=== PATIENT | female | born 1980 | race Caucasian/White ===

== ENCOUNTER → 2019-05-18 | Outpatient (CLI) | payer MEDICAID ==
--- NOTE | 2019-05-19 09:37 | USB ---
Reason for exam: clinical finding. Indicated problem(s): lump or thickening in the left breast. Physical Findings: Nurse Summary: all soft, nodular, movable, prominent nodularity (nurse ts). US Breast LT Technologist: Yaneth Dawkins Left complete breast ultrasound includes all four quadrants, the retroareolar region and axilla. Finding demonstrates a 0.8 x 0.8 x 0.3cm oval, cystic lesion at 2 o'clock and a 1.2 x 1.1 x 0.6cm circular, cystic lesion at 4 o'clock. These results were verbally communicated with the patient and result sheet given to the patient on 05/18/19. ASSESSMENT: Benign, BI-RAD 2 RECOMMENDATION: Routine screening mammogram of both breasts at age 39. Manage patient on a clinical basis.
== END | disposition home or self-care (01) ==
LOC: RADUSWWP 12:43
PROVIDERS: ATTEND Internal Medicine
DX: N63.23 Unspecified lump in the left breast, lower outer quadrant (principal)

== ENCOUNTER → 2020-01-19 | Outpatient (CLI) | payer MEDICAID | END | disposition home or self-care (01) | LOC: CPPFTMAIN 07:17 | PROVIDERS: ATTEND Internal Medicine | DX: J45.998 Other asthma (principal) | CPT/HCPCS: 94060; 94726; 94729 ==

== ENCOUNTER → 2020-09-19 | Outpatient (CLI) | payer MEDICAID ==
--- NOTE | 2020-09-20 08:41 | MM ---
Reason for exam: clinical finding. History: Took hormonal contraceptives beginning at age 20. Physical Findings: Nurse did not find any significant physical abnormalities on exam. MG 3D Diag Mammo W/Cad LORETO Bilateral CC and MLO view(s) were taken. The breast tissue is extremely dense which could obscure a lesion on mammography. Bilateral diffuse nodules. Ultrasound recommended. These results were verbally communicated with the patient and result sheet given to the patient on 09/19/20. ASSESSMENT: Incomplete: need additional imaging evaluation, BI-RAD 0 RECOMMENDATION: Ultrasound of both breasts.
--- NOTE | 2020-09-20 08:44 | USB ---
Reason for exam: additional evaluation requested from abnormal screening. History: Took hormonal contraceptives beginning at age 20. US Breast BILAT Technologist: Yaneth Dawkins Right complete breast ultrasound includes all four quadrants, the retroareolar region and axilla. Finding demonstrates a 0.8 x 0.7 x 0.5cm cystic lesion at 2 o'clock complex with septation, a 0.3 x 0.5 x 0.3cm cystic lesion at 8 o'clock complex with septations, a 0.6 x 0.5 x 0.3cm cystic lesion at 8 o'clock and a 0.6 x 0.5 x 0.5cm cystic lesion at 9 o'clock. Left complete breast ultrasound includes all four quadrants, the retroareolar region and axilla. Finding demonstrates a 0.3 x 0.3 x 0.3cm cystic lesion at 9 o'clock, a 1.0 x 1.2 x 0.6cm cystic lesion at 3 o'clock complex with septations and a 0.8 x 0.7 x 0.4cm cystic lesion at 2 o'clock. Benign appearing, corresponds to mammogram. These results were verbally communicated with the patient and result sheet given to the patient on 09/19/20. ASSESSMENT: Benign, BI-RAD 2 RECOMMENDATION: Routine screening mammogram of both breasts in 1 year.
== END | disposition home or self-care (01) ==
LOC: RADMAMWWP 13:00
PROVIDERS: ATTEND Internal Medicine
DX: N60.01 Solitary cyst of right breast (principal); N60.02 Solitary cyst of left breast; N63.10 Unspecified lump in the right breast, unspecified quadrant; N63.20 Unspecified lump in the left breast, unspecified quadrant
CPT/HCPCS: 77062; 77066

== ENCOUNTER → 2021-08-10 | Outpatient (CLI) | payer MEDICAID ==
--- NOTE | 2021-08-10 15:52 | ECHOF ---
Referral Reason:TIA G45.9 MEASUREMENTS -------- HEIGHT: 160.0 cm WEIGHT: 54.4 kg BP: RVIDd: 3.3 cm (< 3.3) IVSd: 0.9 cm (0.6 - 1.1) LVIDd: 4.4 cm (3.9 - 5.3) LVPWd: 1.0 cm (0.6 - 1.1) IVSs: 1.4 cm LVIDs: 1.9 cm LVPWs: 1.5 cm LAESV Index (A-L): 30.78 ml/m Ao Diam: 3.0 cm (2.0 - 3.7) AV Cusp: 2.0 cm (1.5 - 2.6) LA Diam: 3.4 cm (2.7 - 3.8) MV E Mark: 0.98 m/s MV DecT: 164 ms MV A Mark: 0.73 m/s MV E/A Ratio: 1.35 RAP: 5.00 mmHg RVSP: 36.67 mmHg FINDINGS -------- Sinus rhythm. This was a technically adequate study. The left ventricular size is normal. Left ventricular wall thickness is normal. Overall left vent ricular systolic function is normal with, an EF between 55 - 60 %. The diastolic filling pattern is normal for the age of the patient 8.45. The right ventricle is mildly enlarged. LA is midly dilated 29-33ml/m2. The right atrial size is normal. Interatrial and interventricular septum intact. Trace amount of aortic regurgitation. There is no evidence of aortic stenosis. Mild mitral regurgitation is present. Mild tricuspid regurgitation present. There is no evidence of pulmonary hypertension. The right v entricular systolic pressure, as measured by Doppler, is 36.67mmHg. There is no pulmonic regurgitation present. The aortic root size is normal. IVC Not well visulized. There is no pericardial effusion. CONCLUSIONS -------- 1. The left ventricular size is normal. 2. Left ventricular wall thickness is normal. 3. Overall left ventricular systolic function is normal with, an EF between 55 - 60 %. 4. The diastolic filling pattern is normal for the age of the patient 8.45 5. The right ventricle is mildly enlarged. 6. LA is midly dilated 29-33ml/m2. 7. Trace amount of aortic regurgitation. 8. Mild mitral regurgitation is present. 9. Mild tricuspid regurgitation present. HEATING AND BLENDING SUPERVISOR: Janie Bates RDCS
== END | disposition home or self-care (01) ==
LOC: RADECHMAIN 13:51
PROVIDERS: ATTEND Internal Medicine Geriatric Medicine
DX: I08.3 Combined rheumatic disorders of mitral, aortic and tricuspid valves (principal)
CPT/HCPCS: 93306

== ENCOUNTER → 2021-08-19 | Outpatient (CLI) | payer MEDICAID ==
--- NOTE | 2021-08-20 13:02 | MR ---
EXAMINATION TYPE: MR brain wo/w con DATE OF EXAM: 08/19/2021 COMPARISON: HISTORY: Stroke like symptoms, slurred speech, confusion, muscle twitches, weakness TECHNIQUE: Multiplanar, multisequence images of the brain and brainstem is performed without and with IV contras t, utilizing 5 mL intravenous Gadavist . FINDINGS: Diffusion weighted images demonstrate no evidence of a recent infarct or other diffusion ab normality. There is no extra-axial fluid collection. There are scattered hyperintensities within the periventricular, deep and subcortical white matter on inversion recovery T2-weighted sequences, appr oximately 30 lesions are present, largest on axial image 20 the right frontal white matter measures a pproximately 8 mm The ventricular system and cisternal spaces are normal in size and appearance. The brain volume is age appropriate. Midline structures demonstrate normal morphology, inferior cerebellar tonsils in close proximity to t he foramen magnum. The craniocervical junction appears within normal limits. Post contrast images d emonstrate no abnormal enhancement. The dural venous sinuses appear patent. The visualized sinuses ar e clear and the globes are intact. IMPRESSION: Nonspecific white matter demyelination, differential includes demyelinating disease, rosalinda elate for multiple sclerosis, Lyme disease, hypertension, migraine headaches, vasculitis.
== END | disposition home or self-care (01) ==
LOC: RADMRIMAIN 12:38
PROVIDERS: ATTEND Internal Medicine Geriatric Medicine
DX: G37.9 Demyelinating disease of central nervous system, unspecified (principal)
CPT/HCPCS: 70553; A9585

== ENCOUNTER → 2021-09-29 | Outpatient (CLI) | payer MEDICAID ==
[2021-09-29 18:29] LABS: Basophils # (A) 0.03 X 10*3/uL (0.00-0.10); Basophils % (A) 0.6 %; Eosinophils # (A) 0.03 X 10*3/uL (0.04-0.35); Eosinophils % (A) 0.6 %; HCT 42.7 % (37.2-46.3); HGB 13.7 g/dL (12.0-15.0); Immature Grans, Automated 0.2 %; Lymphocytes # (A) 1.59 X 10*3/uL (0.90-5.00); Lymphocytes % (A) 29.3 %; MCH 29.3 pg (27.0-32.0); MCHC 32.1 g/dL (32.0-37.0); MCV 91.4 fL (80.0-97.0); Mean Platelet Volume 10.2 fL (9.5-12.2); Monocytes # (A) 0.31 X 10*3/uL (0.20-1.00); Monocytes % (A) 5.7 %; NRBC Per 100 WBC 0 /100 WBCS (0.0-0.0); Neutrophils # (A) 3.45 X 10*3/uL (1.80-7.70); Neutrophils % (A) 63.6 %; Platelet Count 315 X 10*3/uL (140-440); RBC 4.67 X 10*6/uL (4.10-5.20); WBC 5.42 X 10*3/uL (4.50-10.00)
[2021-09-29 19:07] LABS: Albumin 4.6 g/dL (3.8-4.9); Albumin/Globulin Ratio 2.15 (1.60-3.17); Anion Gap 10.4 mmol/L (10.00-18.00); BUN/Creat Ratio 7.32 Ratio (12.00-20.00); Calcium 9.4 mg/dL (8.7-10.3); Carbon Dioxide 26.2 mmol/L (20.0-27.5); Globulin 2.1 g/dL (1.6-3.3); Non-African American GFR(CKD) 108.7 (60.0-200.0); Total Bilirubin 0.3 mg/dL (0.30-1.20); Total Protein 6.7 g/dL (6.2-8.2)
== END | disposition home or self-care (01) ==
LOC: LABWHC1 12:39
PROVIDERS: ATTEND Nurse Practitioner Acute Care
DX: E55.9 Vitamin D deficiency, unspecified (principal); E53.9 Vitamin B deficiency, unspecified; R90.82 White matter disease, unspecified; R42 Dizziness and giddiness; R20.2 Paresthesia of skin
CPT/HCPCS: 36415; 80053; 82306; 82607; 84207; 85025

== ENCOUNTER → 2021-10-04 | Outpatient (CLI) | payer MEDICAID ==
[2021-10-05 11:53] LABS: IgG - CSF 1.6 mg/dL (0.0 - 3.4); IgG/Albumin Index (CSF) 0.55 (0.00 - 0.77); Immunoglobulin G 912 mg/dL (700 - 1600)
== END | disposition home or self-care (01) ==
LOC: LABWHC1 07:18
PROVIDERS: ATTEND Nurse Practitioner Acute Care
DX: R90.82 White matter disease, unspecified (principal)
CPT/HCPCS: 36415; 82040; 82042; 82784; 83916

== ENCOUNTER 2021-12-29 16:01 | Emergency (ER) | payer MEDICAID ==
[2021-12-29 16:10] VITALS: TEMP 99
[2021-12-29] MEDS ORDERED: SODIUM CHLORIDE 0.9% 500 ML 500 ML IV STA (18:31)
--- NOTE | 2021-12-29 18:37 | ED ---
General Adult HPI - General Chief complaint: Neuro Symptoms/Deficit Stated complaint: Eye issues,trouble speaking,Weakness-Poss stroke Time Seen by Provider: 12/29/21 18:17 Source: patient Mode of arrival: ambulatory Limitations: no limitations - History of Present Illness Initial comments: This patient is a 41-year-old woman who presents with request for neurologic evaluation are related to some symptoms that had developed yesterday around 3 in the afternoon. The patient states that she had the onset of difficulty with speech, namely that her speech was unintelligible for about 15 minutes. She also was experiencing "optic prisms," at that time. Again symptoms last about 15 minutes and have resolved. She states that since that time she's noticed she is having some difficulty with word finding, but her speech is clear. The patient is not having any extremity symptoms. No headache was experienced. The patient states that she does currently see Dr. Nolan, has been doing studies related to the possible MS. Onset/Timin -: hour(s) Severity scale (1-10): 0 Consistency: now resolved Improves with: none Worsens with: none Associated Symptoms: denies other symptoms Treatments Prior to Arrival: none - Related Data Allergies Allergy/AdvReac Type Severity Reaction Status Date / Time Penicillins Allergy Anaphylaxis Verified 12/29/21 16:12 aspirin AdvReac Rash/Hives Verified 12/29/21 16:13 codeine AdvReac Anaphylaxis Verified 12/29/21 16:12 erythromycin base AdvReac Rash/Hives Verified 12/29/21 16:12 ibuprofen AdvReac Rash/Hives Verified 12/29/21 16:12 shellfish derived [Shellfish] AdvReac Anaphylaxis Verified 12/29/21 16:12 sulfate ion AdvReac Anaphylaxis Verified 12/29/21 16:12 Review of Systems ROS Statement: Those systems with pertinent positive or pertinent negative responses have been documented in the HPI. ROS Other: All systems not noted in ROS Statement are negative. Constitutional: Denies: fever, chills, weakness Eyes: Reports: vision change Respiratory: Denies: cough, dyspnea Cardiovascular: Denies: chest pain, palpitations, syncope Gastrointestinal: Denies: abdominal pain, vomiting, diarrhea Genitourinary: Denies: dysuria, hematuria Musculoskeletal: Denies: back pain Neurological: Denies: headache, weakness, numbness, paresthesias, confusion Past Medical History Past Medical History: Asthma Additional Past Medical History / Comment(s): seasonal allergies, muscle spasms, possible MS Past Surgical History: Appendectomy, Section Past Psychological History: No Psychological Hx Reported Smoking Status: Never smoker Past Alcohol Use History: None Reported Past Drug Use History: None Reported General Exam Limitations: no limitations General appearance: alert, in no apparent distress Head exam: Present: atraumatic, normocephalic Eye exam: Present: normal appearance, PERRL, EOMI. Absent: scleral icterus, conjunctival injection Neck exam: Present: normal inspection Respiratory exam: Present: normal lung sounds bilaterally. Absent: respiratory distress, wheezes, rales, rhonchi, stridor Cardiovascular Exam: Present: regular rate, normal rhythm, normal heart sounds. Absent: systolic murmur, diastolic murmur, rubs, gallop GI/Abdominal exam: Present: soft. Absent: distended, tenderness, guarding, rebound, rigid, mass Extremities exam: Present: normal inspection, normal capillary refill. Absent: pedal edema, calf tenderness Back exam: Present: normal inspection. Absent: CVA tenderness (R), CVA tenderness (L) Neurological exam: Present: alert, oriented X3, CN II-XII intact. Absent: motor sensory deficit Skin exam: Present: warm, dry, intact, normal color. Absent: rash Course Vital Signs 12/29/21 16:03 Temperature 99.0 F Pulse Rate 70 Respiratory 18 Rate Blood Pressure 140/84 O2 Sat by Pulse 100 Oximetry Medical Decision Making - Lab Data Result diagrams: 12/29/21 18:38 12/29/21 18:38 Lab Results 12/29/21 12/29/21 12/29/21 Range/Units 18:38 18:38 18:38 WBC 6.8 (3.8-10.6) k/uL RBC 4.76 (3.80-5.40) m/uL Hgb 14.2 (11.4-16.0) gm/dL Hct 43.6 (34.0-46.0) % MCV 91.6 (80.0-100.0) fL MCH 29.8 (25.0-35.0) pg MCHC 32.6 (31.0-37.0) g/dL RDW 13.0 (11.5-15.5) % Plt Count 309 (150-450) k/uL MPV 7.6 Neutrophils % 57 % Lymphocytes % 34 % Monocytes % 5 % Eosinophils % 1 % Basophils % 2 % Neutrophils # 3.9 (1.3-7.7) k/uL Lymphocytes # 2.3 (1.0-4.8) k/uL Monocytes # 0.3 (0-1.0) k/uL Eosinophils # 0.1 (0-0.7) k/uL Basophils # 0.2 (0-0.2) k/uL PT 10.1 (9.0-12.0) sec INR 0.9 (<1.2) APTT 25.8 (22.0-30.0) sec Sodium 138 (137-145) mmol/L Potassium 3.7 (3.5-5.1) mmol/L Chloride 104 (98-107) mmol/L Carbon Dioxide 21 L (22-30) mmol/L Anion Gap 13 mmol/L BUN 11 (7-17) mg/dL Creatinine 0.71 (0.52-1.04) mg/dL Est GFR (CKD-EPI)AfAm >90 (>60 ml/min/1.73 sqM) Est GFR (CKD-EPI)NonAf >90 (>60 ml/min/1.73 sqM) Glucose 93 (74-99) mg/dL Calcium 9.7 (8.4-10.2) mg/dL Total Bilirubin 0.3 (0.2-1.3) mg/dL AST 22 (14-36) U/L ALT 9 (4-34) U/L Alkaline Phosphatase 72 (38-126) U/L Troponin I (0.000-0.034) ng/mL Total Protein 7.5 (6.3-8.2) g/dL Albumin 4.8 (3.5-5.0) g/dL 12/29/21 Range/Units 18:38 WBC (3.8-10.6) k/uL RBC (3.80-5.40) m/uL Hgb (11.4-16.0) gm/dL Hct (34.0-46.0) % MCV (80.0-100.0) fL MCH (25.0-35.0) pg MCHC (31.0-37.0) g/dL RDW (11.5-15.5) % Plt Count (150-450) k/uL MPV Neutrophils % % Lymphocytes % % Monocytes % % Eosinophils % % Basophils % % Neutrophils # (1.3-7.7) k/uL Lymphocytes # (1.0-4.8) k/uL Monocytes # (0-1.0) k/uL Eosinophils # (0-0.7) k/uL Basophils # (0-0.2) k/uL PT (9.0-12.0) sec INR (<1.2) APTT (22.0-30.0) sec Sodium (137-145) mmol/L Potassium (3.5-5.1) mmol/L Chloride (98-107) mmol/L Carbon Dioxide (22-30) mmol/L Anion Gap mmol/L BUN (7-17) mg/dL Creatinine (0.52-1.04) mg/dL Est GFR (CKD-EPI)AfAm (>60 ml/min/1.73 sqM) Est GFR (CKD-EPI)NonAf (>60 ml/min/1.73 sqM) Glucose (74-99) mg/dL Calcium (8.4-10.2) mg/dL Total Bilirubin (0.2-1.3) mg/dL AST (14-36) U/L ALT (4-34) U/L Alkaline Phosphatase (38-126) U/L Troponin I <0.012 (0.000-0.034) ng/mL Total Protein (6.3-8.2) g/dL Albumin (3.5-5.0) g/dL - EKG Data -: EKG Interpreted by [place] EKG shows normal: sinus rhythm, axis (Normal), intervals (Normal), QRS complexes (Normal), ST-T waves (Normal) Rate: bradycardia (Rate 59 bpm) Disposition Clinical Impression: Dysarthria Disposition: HOME SELF-CARE Condition: Good Instructions (If sedation given, give patient instructions): Transient Ischemic Attack (ED) Is patient prescribed a controlled substance at d/c from ED?: No Referrals: None,Stated [Primary Care Provider] - 1-2 days Remigio Nolan MD [Medical Doctor] - 1-2 days Decision Time: 19:50
[2021-12-29 18:46] LABS: Basophils # (A) 0.2 k/uL (0-0.2); Basophils % (A) 2 %; Eosinophils # (A) 0.1 k/uL (0-0.7); Eosinophils % (A) 1 %; HCT 43.6 % (34.0-46.0); HGB 14.2 gm/dL (11.4-16.0); Lymphocytes # (A) 2.3 k/uL (1.0-4.8); Lymphocytes % (A) 34 %; MCH 29.8 pg (25.0-35.0); MCHC 32.6 g/dL (31.0-37.0); MCV 91.6 fL (80.0-100.0); Mean Platelet Volume 7.6; Monocytes # (A) 0.3 k/uL (0-1.0); Monocytes % (A) 5 %; Neutrophils # (A) 3.9 k/uL (1.3-7.7); Neutrophils % (A) 57 %; Platelet Count 309 k/uL (150-450); RBC 4.76 m/uL (3.80-5.40); WBC 6.8 k/uL (3.8-10.6)
[2021-12-29 18:56] LABS: ALT 9 U/L (4-34); AST 22 U/L (14-36); African American GFR (CKD) >90 (>60 ml/min/1.73 sqM); Albumin 4.8 g/dL (3.5-5.0); Alkaline Phosphatase 72 U/L (38-126); Anion Gap 13 mmol/L; Blood Urea Nitrogen 11 mg/dL (7-17); Calcium 9.7 mg/dL (8.4-10.2); Carbon Dioxide 21 mmol/L (22-30); Chloride 104 mmol/L (98-107); Glucose 93 mg/dL (74-99); Non-African American GFR(CKD) >90 (>60 ml/min/1.73 sqM); Potassium 3.7 mmol/L (3.5-5.1); Sodium 138 mmol/L (137-145); Total Bilirubin 0.3 mg/dL (0.2-1.3); Total Protein 7.5 g/dL (6.3-8.2)
[2021-12-29 19:01] LABS: INR 0.9 (<1.2); Partial Thromboplastin Time 25.8 sec (22.0-30.0); Prothrombin Time 10.1 sec (9.0-12.0)
--- NOTE | 2021-12-29 19:12 | CT ---
EXAMINATION TYPE: CT brain wo con DATE OF EXAM: 12/29/2021 COMPARISON: None HISTORY: weakness, trouble speaking CT DLP: 1068.4 mGycm Automated exposure control for dose reduction was used. Images obtained of the brain with no contrast. Ventricles and sulci appear normal. There is no mass effect or midline shift. No sign of intracranial hemorrhage. The calvarium is intact IMPRESSION: Negative unenhanced head CT scan.
--- NOTE | 2021-12-29 19:21 | XR ---
EXAMINATION TYPE: XR chest 2V DATE OF EXAM: 12/29/2021 COMPARISON: 08/04/2021 HISTORY: Asthma TECHNIQUE: 2 views FINDINGS: Heart and mediastinum are normal. Lungs are clear. Diaphragm is normal. Bony thorax is inta ct IMPRESSION: Normal chest. No change.
[2021-12-29 20:10] VITALS: BP 128/67; PULSE 61; RESP 16
== END 2021-12-29 20:17 | disposition home or self-care (01) ==
LOC: EC 16:01
DX: R47.1 Dysarthria and anarthria (principal); R00.1 Bradycardia, unspecified; J45.909 Unspecified asthma, uncomplicated; Z88.0 Allergy status to penicillin; Z88.6 Allergy status to analgesic agent; Z88.5 Allergy status to narcotic agent; Z88.1 Allergy status to other antibiotic agents; Z91.013 Allergy to seafood; Z88.2 Allergy status to sulfonamides
CPT/HCPCS: 36415; 70450; 71046; 80053; 84484; 85025; 85610; 85730; 93005; 96360; 99285

== ENCOUNTER → 2024-05-12 | Outpatient (CLI) | payer OTHER ==
[2024-05-12 14:10] VITALS: BP 135/87; PULSE 86; RESP 16; TEMP 98.4
--- NOTE | 2024-05-12 15:04 | P.SLEEP ---
History of Present Illness H&P Date: 05/12/24 This is a 43-year-old female patient who was referred to me for a sleep evaluation and the patient has been experiencing excessive fatigue and sleepiness. The patient has a very complicated history of an underlying ongoing neurological disorder, which is not fully diagnosed yet although a lot of her symptoms are similar to multiple sclerosis. The patient reports that she has had developed multiple [employer] lesions that was noted on previous imaging of the brain. She has had difficulties with speech, finding right words, motor deficits and dysfunction along with weakness and occasional visual changes for which she has been seen at [facility] and a workup has also included a lumbar puncture that was not fully diagnostic for multiple sclerosis. The patient is currently on Topamax. Nausea of any seizure disorders. She has history of chronic headaches. At the same time, the patient has history of allergic bronchial asthma maintained on a combination of Singulair and Zyrtec and Xopenex on an as-needed basis. Her asthma is currently inactive and stable. She also reports previous history of hypertension that was poorly controlled over the years and currently she is under better control while taking amlodipine 5 mg p.o. daily. In terms of her sleep, the patient has history of snoring. She goes to bed at around 11:30 PM and wakes up at 9:30 AM in the morning. She is excessively fatigued and tired and sleepy. She tries not to sleep or nap as taking sleep will make her more fatigued than tired. As such, she has been avoiding to take naps. Denies waking up in the middle of the night choking or gasping for air. She wakes up with a dry mouth. She has no difficulties in sleep initiation and and maintenance. If left unstimulated, she can fall asleep easily without any major difficulties. She does not fall asleep while driving. No restlessness in lower extremities. She has had some visual hallucinations while trying to go to sleep as the patient has seen images like her daughters image which obviously was not present in her room. No hypnagogic hallucin ations. No cataplexy. Few episodes of sleep paralysis has been noted. No childhood history of narcolepsy. Recurrent upper scores at 5. She has had previous history of concussions to the head. No substance abuse. No alcoholism. No sleepwalking. No sleep talking. No other parasomnias noted. Review of Systems Constitutional: Reports daytime sleepiness, Reports fatigue, Reports weakness Eyes: bilateral as per HPI, denies blurred vision, denies bulging eye, denies decreased vision, denies diplopia, denies discharge, denies dry eye, denies irritation, denies itching, denies pain, denies photophobia, denies loss of peripheral vision, denies loss of vision, denies tunnel vision/blind spots Ears: bilateral: decreased hearing, deny: ear discharge, earache, tinnitus Ears, nose, mouth and throat: Reports as per HPI Breasts: absent: as per HPI, change in shape, gynecomastia, masses, nipple discharge, pain, skin changes, swelling Cardiovascular: Reports as per HPI Respiratory: Reports as per HPI Gastrointestinal: Reports as per HPI Genitourinary: Reports as per HPI Menstruation: Reports as per HPI Musculoskeletal: Reports arm numbness/tingling, Reports muscle weakness Musculoskeletal: absent: ankle pain, ankle stiffness, ankle swelling, as per HPI, elbow pain, elbow stiffness, elbow swelling, foot pain, foot stiffness, foot swelling, hand pain, hand stiffness, hand swelling, hip pain, hip stiffness, hip swelling, knee pain, knee stiffness, knee swelling, shoulder p ain, shoulder stiffness, shoulder swelling, wrist pain, wrist stiffness, wrist swelling Integumentary: Reports as per HPI Neurological: Reports as per HPI, Reports change in speech, Reports gait dysfunction, Reports head injury, Reports migraines, Reports motor disturbance, Reports weakness Psychiatric: Reports as per HPI Endocrine: Reports as per HPI, Reports fatigue Hematologic/Lymphatic: Reports as per HPI Allergic/Immunologic: Reports as per HPI Past Medical History Past Medical History: Asthma Additional Past Medical History / Comment(s): seasonal allergies, muscle spasms, possible MS History of Any Multi-Drug Resistant Organisms: None Reported Past Surgical History: Appendectomy, Section Past Anesthesia/Blood Transfusion Reactions: No Reported Reaction Past Psychological History: No Psychological Hx Reported Smoking Status: Never smoker Past Alcohol Use History: None Reported Past Drug Use History: None Reported - Past Family History Mother Additional Family Medical History / Comment(s): anemia Father Family Medical History: Coronary Artery Disease (CAD), Hypertension Additional Family Medical History / Comment(s): snoring Brother(s) Family Medical History: Sleep Apnea/CPAP/BIPAP Medications and Allergies Home Medications Medication Instructions Recorded Confirmed Type Cetirizine HCl [Zyrtec] 10 mg PO DAILY 05/12/24 05/12/24 History Levalbuterol Hfa Inhaler [Xopenex See Rx Instructions .ROUTE 05/12/24 05/12/24 History Hfa Inhaler] .COMPLEX PRN Levalbuterol Nebulized [Xopenex 1.25 mg INHALATION TID PRN MDD 05/12/24 05/12/24 History Nebulized] 1.25 mg Montelukast [Singulair] 10 mg PO DAILY 05/12/24 05/12/24 History Topiramate [Topiramate ER] 25 mg PO DAILY 05/12/24 05/12/24 History Topiramate [Topiramate ER] 50 mg PO HS 05/12/24 05/12/24 History amLODIPine [Norvasc] 5 mg PO DAILY 05/12/24 05/12/24 History tiZANidine [Zanaflex] 4 mg PO DAILY 05/12/24 05/12/24 History tiZANidine [Zanaflex] 4 mg PO Q8HR PRN 05/12/24 History Allergies Allergy/AdvReac Type Severity Reaction Status Date / Time Penicillins Allergy Anaphylaxis Verified 12/29/21 16:12 aspirin AdvReac Rash/Hives Verified 12/29/21 16:13 codeine AdvReac Anaphylaxis Verified 12/29/21 16:12 erythromycin base AdvReac Rash/Hives Verified 12/29/21 16:12 ibuprofen AdvReac Rash/Hives Verified 12/29/21 16:12 shellfish derived [Shellfish] AdvReac Anaphylaxis Verified 12/29/21 16:12 sulfate ion AdvReac Anaphylaxis Verified 12/29/21 16:12 Physical Exam Vitals: Vital Signs Temp Pulse Resp BP Pulse Ox 05/12/24 14:08 98.4 F 86 16 135/87 100 Intake and Output 05/11/24 05/12/24 05/12/24 22:59 06:59 14:59 Other: Weight 52.163 kg The patient appeared well nourished and normally developed. Vital signs as documented. Head exam is unremarkable. No scleral icterus or corneal arcus noted. Neck is without jugular venous distension, thyromegaly, or carotid bruits. Carotid upstrokes are brisk bilaterally. Lungs are clear to auscultation and percussion. Cardiac exam reveals the PMI to be normally sized and situated. Rhythm is regular. First and second heart sounds normal. No murmurs, rubs or gallops. Abdominal exam reveals normal bowel sounds, no masses, no organomegaly and no aortic enlargement. Extremities are nonedematous and both femoral and pedal pulses are normal. Examination of the skin revealed no evidence of significant rashes, suspicious appearing nevi or other concerning lesions. Neurologically, the patient is awake and alert and the patient does not have any focal neurological deficit. Cranial nerves are essentially intact. Assessment and Plan Plan: Chronic exhaustion/fatigue with limited sleepiness and an [place] score of 6. Exact cause is not clear. The patient has an ongoing neurologic disorder and she is still on investigation [facility]. Multiple sclerosis was considered although the diagnostic workup was not consistent with MS. The patient was referred to me to evaluate her sleep quality. She has had some occasional sleep paralysis and early evening hallucinations/visual. No reported cataplexy. She has loud snoring. She is not obese and her body mass index is 20.3. She is taking muscle relaxants and she is also on Topamax. 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 The patient continues to have difficulties with vision, hearing, speech, motor dysfunction and generalized weakness. Chronic bronchial asthma, allergic in nature, currently inactive and stable Hypertension Environmental allergies Plan This is a quite complicated case and a final neurologic diagnosis not been established and the patient is currently undergoing further investigation through [facility]. The patient was referred to me to evaluate her sleep quality. Based on presence of an ongoing neurologic disorder, possibilities may include chronic hypersomnia/comorbid in nature. Narcolepsy cannot be completely excluded. Obstructive sleep apnea is felt to be less likely. I thought is worthwhile to order a screening per sonography for this patient to evaluate her sleep architecture, efficiency and rule out possibility of obstructive sleep apnea. At the same time, the patient will need a secondary MSLT to rule out the possibility of narcolepsy. Maintain good sleep hygiene measures. Will collaborate with the team at [facility] regarding her care. Keep same medications for now. Further recommendations are to be made based on the results of the sleep study. Sleep Note - Sleep Data ESS Total: 6 - Sleep Note Sleep Note: Temperature: 98.4 F Pulse Rate: 86 Respiratory Rate: 16 Blood Pressure: 135/87 SpO2: 100 Height: 5 ft 3 in Weight: 52.163 kg BMI: Neck Circumference: 11.5
== END ==
LOC: 3 N SLEEP 13:19
PROVIDERS: ATTEND Internal Medicine Critical Care Medicine
DX: R29.90 Unspecified symptoms and signs involving the nervous system (principal); I10 Essential (primary) hypertension; J45.909 Unspecified asthma, uncomplicated; G89.29 Other chronic pain; Z91.09 Other allergy status, other than to drugs and biological substances; Z88.0 Allergy status to penicillin; Z88.6 Allergy status to analgesic agent; Z88.5 Allergy status to narcotic agent; Z88.1 Allergy status to other antibiotic agents; Z91.013 Allergy to seafood; Z88.8 Allergy status to other drugs, medicaments and biological substances
CPT/HCPCS: 99211

== ENCOUNTER 2024-06-15 19:47 | Outpatient (CLI) | payer OTHER ==
[2024-06-16 21:28] LABS: Urine Alcohol Negative (Negative); Urine Barbiturate Negative (Negative); Urine Cocaine Negative (Negative); Urine Methadone Negative (Negative); Urine Opiates Negative (Negative); Urine Phencyclidine Negative (Negative)
--- NOTE | 2024-06-22 00:03 | P.PCN ---
Date of Procedure: 06/15/24 Operative Findings: Polysomnography report Date of service is 06/15/2024 History This is a 43-year-old female patient who was referred to me for a sleep evaluation and the patient has been experiencing excessive fatigue and sleepiness. The patient has a very complicated history of an underlying ongoing neurological disorder, which is not fully diagnosed yet although a lot of her symptoms are similar to multiple sclerosis. The patient reports that she has had developed multiple [employer] lesions that was noted on previous imaging of the brain. She has had difficulties with speech, finding right words, motor deficits and dysfunction along with weakness and occasional visual changes for which she has been seen at [facility] and a workup has also included a lumbar puncture that was not fully diagnostic for multiple sclerosis. The patient is currently on Topamax. Nausea of any seizure disorders. She has history of chronic headaches. At the same time, the patient has history of allergic bronchial asthma maintained on a combination of Singulair and Zyrtec a nd Xopenex on an as-needed basis. Her asthma is currently inactive and stable. She also reports previous history of hypertension that was poorly controlled over the years and currently she is under better control while taking amlodipine 5 mg p.o. daily. In terms of her sleep, the patient has history of snoring. She goes to bed at around 11:30 PM and wakes up at 9:30 AM in the morning. She is excessively fatigued and tired and sleepy. She tries not to sleep or nap as taking sleep will make her more fatigued than tired. As such, she has been avoiding to take naps. Denies waking up in the middle of the night choking or gasping for air. She wakes up with a dry mouth. She has no difficulties in sleep initiation and and maintenance. If left unstimulated, she can fall asleep easily without any major difficulties. She does not fall asleep while driving. No restlessness in lower extremities. She has had some visual hallucinations while trying to go to sleep as the patient has seen images like her daughters image which obviously was not present in her room. No hypnagogic hallucinations. No cataplexy. Few episodes of sleep paralysis has been noted. No childhood history of narcolepsy. Recurrent upper scores at 5. She has had previous history of concussions to the head. No substance abuse. No alcoholism. No sleepwalking. No sleep talking. No other parasomnias noted. Pertinent physical findings Weight is 115 pounds with a body mass index of 20.4 Technical description The patient was studied using a standard complex polysomnography protocol that included recording of the Lead II EKG, Central, occipital and frontal EEG, right and left outer canthus EOG, submental EMG, right and left anterior tibialis EMG, respiratory airflow by thermocouple and or pressure/flow transducer, respiratory efforts by abdominal and thoracic PVDF belts, oxygen saturation by cable oximetry. Position by observation synchronized the PSG. Equipment used: Giving Assistant. Sleep architecture The total recording duration was 460 minutes. The total sleep time was 368.5 minutes. The wake after sleep onset time was 82 minutes. The overall sleep efficiency was 80.1%. Latency to sleep onset was 8 minutes. The latest REM sleep was 106.0 minutes. The sleep architecture was characterized by 2.6% stage I, 65.5% stage II, 14.1% stage III, and disorder of 17.9% REM sleep. The total arousal index was 5.9. Respiratory analysis The patient had a total of 0 obstructive apneas, 0 mixed apneas, 0 central apneas and the AHI was 0. No central apneas were noted. Oxygenation analysis The baseline pulse ox while awake was 94%. The patient encountered no significant nocturnal oxygen saturations. Patient spent only 7.9 minutes of sleep time below pulse ox of 89% and this accounted for only 1% overall sleep study. Arousal events The patient encountered a total of 36 arousals with an arousal index of 5.9. The respiratory arousal index was 0 Periodic limb movement summary None Cardiac summary Average heart rate was 71 with a minimum heart of 66 and a maximum heart of 77 Assessment Primary snoring, no evidence of any sleep breathing disorder. Patient is AHI was 0. No obstructive apneas or hypopneas. No central apneas. No significant nocturnal oxygen saturations. No significant periodic limb movement activity. The overall sleep architecture was adequate with a sleep average of 80%. Chronic exhaustion/fatigue with limited sleepiness and an [place] score of 6. Exact cause is not clear. The patient has an ongoing neurologic disorder and she is still on investigation [facility]. Multiple sclerosis was considered although the diagnostic workup was not consistent with MS. The patient was referred to me to evaluate her sleep quality. She has had some occasional sleep paralysis and early evening hallucinations/visual. No reported cataplexy. She is taking muscle relaxants and she is also on Topamax. 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 The patient continues to have difficulties with vision, hearing, speech, motor dysfunction and generalized weakness. Chronic bronchial asthma, allergic in nature, currently inactive and stable Hypertension Environmental allergies Plan Patient will be reassured. No evidence of any sleep breathing disorder. My overall clinical suspicion for obstructive sleep apnea was low on this patient. The sleep study also showed adequate sleep architecture with some diminished overall sleep efficiency. Nevertheless, no significant abnormalities noted. Based on that, MSLT was performed. MSLT report Date of service is 06/16/2024 Technical description This MSLT was performed after a full night polysomnography during which there was more than 6 hours of sleep. The patient had complaints of excessive daytime sleepiness and fatigue. The electrographic variables include EEG, EMG, EEG and EKG. Patient was monitored throughout 520 minutes opportunities to sleep at 2- hour intervals. For each nap, the patient was allowed to sleep for around 20 minutes. Once asleep, the patient was awakened after 15 minutes. In between naps, the patient was Is alert responsible. The latency of 20 minutes indicated no sleep occurrence. Results This patient was given a total of 5 naps. The mean sleep latency for left under 1 was 8 minutes, left #2 was 7 minutes Hide #3 was 3 minutes, abdominal fullness 8 minutes and abnormal event was 14.5 minutes. The mean sleep latency for 5 naps was 8.1 minutes. No REM onset sleep. Assessment No evidence of any sleep breathing disorder No evidence of pathologic hypersomnia based on MSLT. The mean sleep latency for 5 naps was 8.1 minutes and the patient did not have any REM onset sleep Plan Consider modafinil for daytime stimulation. As stated, patient's symptoms of fatigue and sleepiness could be related to her comorbidities. No evidence of any primary idiopathic hypersomnia or narcolepsy. No evidence of any sleep breathing disorder. This is a quite complicated case and a final neurologic diagnosis not been established and the patient is currently undergoing further investigation through [facility]. Maintain good sleep hygiene measures. Will collaborate with the team at [facility] regarding her care. Keep same medications for now.
== END 2024-06-16 17:35 | disposition home or self-care (01) ==
LOC: 3 N SLEEP 19:47
PROVIDERS: ATTEND Internal Medicine Critical Care Medicine
DX: R06.83 Snoring (principal); R53.82 Chronic fatigue, unspecified; G35 Multiple sclerosis; G31.9 Degenerative disease of nervous system, unspecified; R53.1 Weakness; F82 Specific developmental disorder of motor function; J45.909 Unspecified asthma, uncomplicated; I10 Essential (primary) hypertension; Z79.899 Other long term (current) drug therapy; H53.9 Unspecified visual disturbance; R47.9 Unspecified speech disturbances; Z88.0 Allergy status to penicillin; Z88.6 Allergy status to analgesic agent; Z88.5 Allergy status to narcotic agent; Z88.1 Allergy status to other antibiotic agents; Z91.013 Allergy to seafood; Z88.2 Allergy status to sulfonamides
CPT/HCPCS: 80306; 95805; 95810

== ENCOUNTER → 2024-10-08 | Outpatient (CLI) | payer OTHER ==
--- NOTE | 2024-10-09 07:34 | MM ---
Reason for Exam: Screening (asymptomatic). Last mammogram was performed 1 year(s) and 11 month(s) ago. Patient History: Menarche at age 12. First Full-Term at age 23. Patient has history of breast feeding. Hormonal Contraceptives, from age 20 until age 22. Risk Values: Ella 5 year model risk: 0.7%. NCI Lifetime model risk: 8.7%. Prior Study Comparison: 09/19/2020 Bilateral Diagnostic Mammogram, [facility]. 11/15/2022 Bilateral MG screening mammo w CAD, [facility]. Tissue Density: The breasts are extremely dense, which lowers the sensitivity of mammography. Findings: Analyzed By CAD. There is no suspicious group of microcalcifications or new suspicious mass in either breast. Overall Assessment: Benign, BI-RAD 2 Management: Screening Mammogram of both breasts in 1 year. . Patient should continue monthly self-breast exams. A clinical breast exam by your physician is recommended on an annual basis. This exam should not preclude additional follow-up of suspicious palpable abnormalities. Note on Ella scores and lifetime risk: 1. A Ella score greater than 3% is considered moderate risk. If this is the case, consider specialist referral to assess eligibility for a risk reducing agent. 2. If overall lifetime risk for the development of breast cancer is 20% or higher, the patient may qualify for future screening with alternating mammogram and breast MRI. [facility], , 10/09/2024 7:31 AM. Electronically signed and approved by: Willy Knapp M.D. [facility]
== END | disposition home or self-care (01) ==
LOC: RADMAMWWP 16:22
PROVIDERS: ATTEND Internal Medicine Geriatric Medicine
DX: Z12.31 Encounter for screening mammogram for malignant neoplasm of breast (principal); R92.343 Mammographic extreme density, bilateral breasts; Z92.0 Personal history of contraception
CPT/HCPCS: 77063; 77067